=== PATIENT | female | born 1945 | race Caucasian/White ===

== ENCOUNTER 2018-10-01 17:30 | Inpatient (IN) | payer MEDICARE, OTHER ==
[~2018-10-01] VITALS: Ht 162.6 cm; Wt 77.1 kg
--- NOTE | ~2018-10-01 | EKG ---
[place] [address] ELECTROCARDIOGRAM REPORT Name: BAILEY HUNT Room: [address] M.R.#: [id number] Admission: 10/01/18 Attend Phys: Tanvir Layton MD Discharge: Date of : 47 Report #: [id number] THIS REPORT FOR: //name// [facility] Test Date: 2018-10-02 Test Time: 10:44:11 Pat Name: BAILEY HUNT Department: Room: [address] Gender: F Selling Underwriter: : 1945 Requested By: Tanvir Bird Order Number: [id number] Reading MD: Measurements Intervals [place] Rate: 55 P: 10 [place]: 144 QRS: -49 QRSD: 91 T: 22 QT: 449 QTc: 430 Interpretive Statements Sinus rhythm Inferior infarct, old No previous ECG available for comparison [email or web address] By: [id number] [id number] Elier Thapa MD /EPI
--- NOTE | ~2018-10-01 | OP ---
[address] [address] OPERATIVE REPORT Name: BAILEY HUNT Room: [address] IN .R.#: [id number] Admission: 10/02/18 Attend Phys: Tanvir Layton MD Discharge: Date of : 47 Report #: [id number] THIS REPORT FOR: //name// CC: Tanvir Sarah DATE OF SERVICE: 10/02/2018 PREOPERATIVE DIAGNOSIS: Right patellar fracture, closed, displaced. POSTOPERATIVE DIAGNOSIS: Right patellar fracture, closed, displaced. PROCEDURE: 1. Open reduction and internal fixation of right patellar fracture. 2. Physician directed fluoroscopy less than 1 hour. SURGEON: Tanvir Bird DO NOTE TAKER: Tanvir Day DO ANESTHESIA: General. ANTIBIOTICS: Ancef IV preoperatively. BLOOD LOSS: 25 mL FLUIDS: 700 mL lactated Ringer's. COMPLICATIONS: None. SPECIMENS: None. DRAINS: None. CONDITION OF THE PATIENT: Stable to PACU. IMPLANTS: Ruth 4.0 cannulated screws x 2 with 18 gauge wire. INDICATIONS FOR PROCEDURE: The patient was admitted to [facility] with the patellar fracture after a fall. I had a long conversation with her family regarding the plan for surgery, what her treatment options were as well as risks and complications. Please see previous notes for full details of our discussion, she gave verbal and written consent to proceed. DESCRIPTION OF PROCEDURE: I marked the right lower extremity in the presence of the operative team members. Everyone agreed this was correct. She was taken [address] [address] OPERATIVE REPORT Name: BAILEY HUNT Room: [address] IN ..#: [id number] Admission: 10/02/18 Attend Phys: Tanvir Layton MD Discharge: Date of : 47 Report #: [id number] back to the operative suite where a briefing was performed indicating correct patient, procedure, site, antibiotics and that implants were present sterile. All team members agreed. She was transferred to the operative table in supine position, well-padded and secured. General anesthetic administered. A well-padded tourniquet was placed proximally on the right lower extremity, which was then sterilely prepped and draped in standard fashion. Timeout was performed indicating correct patient, procedure, site, antibiotics and implants present sterile, all team members agreed. We marked for our incision midline, esmarched the extremity, held the knee into flexion so that the quadriceps will not be entrapped. We then inflated the tourniquet to 275 mmHg scalpel through skin, careful dissection down. She had quite a hemorrhagic bursa, an area from this fracture and we were already within to the hemorrhagic fluid and joint, evacuated this out, continued our dissection proximally and distally, made sure that we were full thickness in flaps. She had blown out the medial and lateral retinaculum. This was to be expected and common with this fracture. The patellar tendon was well attached to the inferior fragment and quad tendon was well attached to the proximal fragment, did not appear to have any disruption. We cleaned out her fracture edges. A little bit of comminution along the most lateral facet; however, we would still have 2 very big pieces that we would safely get hardware and get some tension through and that comminuted piece was overall stable with retinaculum area attached to it. We cleaned the fracture edges, directly reduced the fracture with a bxmjz-he-fhvor clamp, confirmed that reduction on multiplanar C-arm imaging. Using C-arm guidance as well as direct visualization, we passed 2 K wires for 4.0 cannulated screws, confirmed that they were in good position by direct visualization as well as multiplanar C-arm imaging, measured them and filled the near cortex. This placed the appropriately sized screws with those sitting in place. We then advanced the wire distally so that we could find where this was exiting out and carefully incised with a quad tendon only in line and very small, only to pass the guidewire. We passed the 18-gauge guidewire in a iwwszm-hc-filoe type fashion pulled that 18 gauge wire tight and began tensioning this down by twisting. Once we had fully twisted this, we cut excess wire and bent this down, so it was sitting flush along the quad tendon and would not be prominent. Final x-ray showed excellent reduction and excellent position of hardware, saved those images, dismissed C-arm, irrigated throughout the joint. There was no remaining debris. It should be noted that she had pretty significant arthritic changes noted when we visualized the articular surface of the patella and the trochlea. Closure of the retinaculum was with 0 Vicryl ruffla-fy-eswtt interrupteds. We also closed the area along the anterior aspect, irrigated the subcutaneous layer, let down tourniquet. Total tourniquet time was 48 minutes. Maintained hemostasis. Closure of the subcutaneous layers with 2-0 Monocryl buried deep and a running 3-0 Stratafix with Dermabond glue over skin. Debriefing was performed and we confirmed the procedure, blood loss and that all counts were correct and final, all team members agreed. Sterile Mepilex impregnated dressing was applied and she was placed into a 3D hinged brace, locked in extension for weightbearing, open to 30 degrees range of motion, otherwise. She [address] [address] OPERATIVE REPORT Name: BAILEY HUNT Room: [address] IN ..#: [id number] Admission: 10/02/18 Attend Phys: Tanvir Layton MD Discharge: Date of : 47 Report #: [id number] was extubated and transferred off the table, taken to PACU in stable. POSTOPERATIVE COURSE AND EVALUATION: I spoke with her family members. They thanked me for my time and efforts for their loved one. She was resting in PACU with stable vital signs, pain controlled. Neurovascularly, she was intact distally in the right lower extremity. No change compared to preop. She will weightbear as tolerated with the brace in extension. She is open to range of motion 0-30 degrees. DVT prophylaxis will be pharmacological and mechanical therapy to help her use the walker. Orthopedically, she will be stable to discharge and follow up as needed. I made sure they have access to my personal number to call me any time with questions or concerns. By: [id number] Bird DO /shanice
[2018-10-01 17:31] VITALS: BP 140/60
[2018-10-01] MEDS ORDERED: GLUCOPHAGE XR500 MG PO (17:39)
[2018-10-01] MEDS ORDERED: TRAMADOL 50 MG50 MG PO (17:39)
[2018-10-01] MEDS ORDERED: BLOOD PRESSURE MED (17:39)
[2018-10-01] MEDS ORDERED: [UNRECOGNIZED DRUG - OTHER] (17:39)
[2018-10-01] MEDS ORDERED: OMEPRAZOLE40 MG PO (17:40)
[2018-10-01 19:30] VITALS: BP 112/52
[2018-10-01 19:38] LABS: ABSOLUTE BASOPHILS 0.1 thou/uL (0.0-0.2); ABSOLUTE EOSINOPHILS 0.1 thou/uL (0.0-0.7); ABSOLUTE LYMPHOCYTES 1.9 thou/uL (0.8-5.3); ABSOLUTE MONOCYTES 0.6 thou/uL (0.0-1.2); ABSOLUTE NEUTROPHILS 8.8 thou/uL (1.6-8.1); BASOPHILS 0.5 %; EOSINOPHILS 0.5 %; HEMATOCRIT 39.6 % (37.0-47.0); LYMPHOCYTES 16.9 %; MCH 29.6 pg (26.0-34.0); MCHC 32.8 g/dL (28.0-37.0); MCV 90.1 fL (80.0-100.0); MONOCYTES 5.6 %; MPV 8.3 fl. (7.2-11.1); NUCLEATED RBCS 0 /100WBC; PLATELET COUNT* 235 thou/uL (150-400); POLYS 76.5 %; RBC 4.39 mil/uL (4.20-5.00); RDW-CV 14.5 % (10.5-14.5); WBC 11.5 thou/uL (4.0-11.0)
[2018-10-01 19:44] LABS: CALCIUM 8.9 mg/dL (8.5-10.1); CREATININE 0.8 mg/dL (0.6-1.3); POTASSIUM 4.5 mmol/L (3.5-5.1)
[2018-10-01 19:46] LABS: APTT 27.5 Seconds (25.0-31.3)
[2018-10-01 19:48] VITALS: BP 131/52
[2018-10-01 19:48] LABS: ALBUMIN 3.6 g/dL (3.4-5.0); MAGNESIUM 1.9 mg/dL (1.8-2.4); TOTAL BILIRUBIN 0.4 mg/dL (<0.1-1.0); TOTAL PROTEIN 6.9 g/dL (6.4-8.2)
[2018-10-02 01:03] LABS: URINE CLARITY CLEAR; URINE COLOR YELLOW; URINE GLUCOSE-RANDOM NEGATIVE (Negative); URINE KETONES NEGATIVE (Negative); URINE PROTEIN NEGATIVE (Negative)
[2018-10-02 01:04] LABS: URINE BILIRUBIN NEGATIVE (Negative); URINE BLOOD NEGATIVE (Negative); URINE LEUKOCYTES-REFLEX NEGATIVE (Negative); URINE NITRITE-REFLEX NEGATIVE (Negative); URINE UROBILINOGEN 0.2 E.U./dl (0.2-1.0)
[2018-10-02 07:45] VITALS: BP 122/54
[2018-10-02 09:27] LABS: PROTIME 10.2 Seconds (9.20-11.50)
[2018-10-02 09:28] VITALS: BP 144/52
[2018-10-02] MEDS ORDERED: GABAPENTIN 100100 MG PO (10:41)
[2018-10-02] MEDS ORDERED: OMEPRAZOLE 20 M20 M1 PO (10:42)
[2018-10-02] MEDS ORDERED: CALCIUM 500 +1 EAC5 PO (10:43)
[2018-10-02] MEDS ORDERED: LEXAPRO20 MG PO (10:44)
[2018-10-02] MEDS ORDERED: METAMUCIL PACK3.4 GM PO (10:45)
[2018-10-02] MEDS ORDERED: TRAMADOL 50 MG50 MG PO (10:46)
[2018-10-02] MEDS ORDERED: PRAVACHOL40 MG PO (10:47)
[2018-10-02] MEDS ORDERED: DERMOTIC20 ML OT (10:47)
[2018-10-02] MEDS ORDERED: FLOVENT HFA 4444 MCG INH (10:48)
[2018-10-02] MEDS ORDERED: ACCUNEB SO1.25 MG/1 INH (10:48)
[2018-10-02] MEDS ORDERED: LISINOPRIL10 MG PO (10:49)
[2018-10-02] MEDS ORDERED: NABUMETONE 750750 M1 PO (10:49)
[2018-10-02] MEDS ORDERED: NASACORT10.8 ML INH (10:50)
[2018-10-02] MEDS ORDERED: GLUCOPHAGE XR500 MG PO (10:51)
[2018-10-02 12:43] VITALS: BP 144/52
[2018-10-02 12:50] VITALS: BP 144/52; BP 154/67
[2018-10-02 16:50] VITALS: BP 114/44
[2018-10-02 20:00] VITALS: BP 143/64
[2018-10-03 03:00] VITALS: BP 157/65
[2018-10-03 09:01] VITALS: BP 136/51
[2018-10-03] MEDS ORDERED: HYDROCODON-ACE1 EAC7 PO (09:56)
[2018-10-03] MEDS ORDERED: ASPIRIN325 PO (09:56)
--- NOTE | 2018-10-03 10:07 | EKG ---
[place] [address] ELECTROCARDIOGRAM REPORT Name: MARILEEBAILEY Room: [address] ADM IN .R.#: [id number] Admission: 10/02/18 Attend Phys: Tanvir Layton MD Discharge: Date of : 47 Report #: [id number] THIS REPORT FOR: //name// [facility] Test Date: 2018-10-02 Test Time: 10:44:11 Pat Name: BAILEY HUNT Department: Room: [address] Gender: F Assembler For Puller Over Hand: : 1945 Requested By: Tanvir Layton Order Number: [id number] Lakhwinder MD: Yohan Odell Measurements Intervals [place] Rate: 55 P: 10 [place]: 144 QRS: -49 QRSD: 91 T: 22 QT: 449 QTc: 430 Interpretive Statements Sinus bradycardia nonspecific t wave changes consider Inferior infarct, old No previous ECG available for comparison Electronically Signed On 10-03-2018 10:07:50 CLAIM TECHNICIAN by Yohan Odell [email or web address] <ELECTRONICALLY SIGNED> By: Yohan Odell MD, [facility] 10/03/18 1007 [id number] Yohan Odell MD, FACC /EPI
[2018-10-03] MEDS ORDERED: NORCO 5-325 TA1 EACH PO (10:37)
[2018-10-03 11:03] VITALS: BP 136/51
[2018-10-03 12:29] VITALS: BP 142/50
[2018-10-03 13:14] VITALS: BP 136/51
== END 2018-10-03 13:55 | disposition home health service (06) | DRG 517 ==
LOC: M.ERS 17:30 → M.ORTHSURG 18:29 → M.3W 18:29 → M.TBA-ER 18:29 → M.3W 18:43 → M.ORTHSURG 10-02 08:41
PROVIDERS: Orthopaedic Surgery; Personal Emergency Response Attendant; ADMIT Internal Medicine
PROC: 0QSD04Z Reposition Right Patella with Internal Fixation Device, Open Approach (ICD-10-PCS; principal; 2018-10-02)
DX: S82.031A Displaced transverse fracture of right patella, initial encounter for closed fracture (principal); G93.89 Other specified disorders of brain; I10 Essential (primary) hypertension; E11.9 Type 2 diabetes mellitus without complications; M79.7 Fibromyalgia; M19.90 Unspecified osteoarthritis, unspecified site; Z96.642 Presence of left artificial hip joint; F17.210 Nicotine dependence, cigarettes, uncomplicated; S00.83XA Contusion of other part of head, initial encounter; W10.8XXA Fall (on) (from) other stairs and steps, initial encounter; Y93.89 Activity, other specified; Y92.89 Other specified places as the place of occurrence of the external cause; Y99.8 Other external cause status; Z85.42 Personal history of malignant neoplasm of other parts of uterus; Z90.710 Acquired absence of both cervix and uterus; Z79.84 Long term (current) use of oral hypoglycemic drugs; Z79.899 Other long term (current) drug therapy